=== PATIENT | female | born 1955 | race Two or more races ===

== ENCOUNTER → 2022-02-04 08:00 | Outpatient (CLI) | payer OTHER ==
[~2022-02-04] VITALS: Ht 152.4 cm; Wt 59.0 kg
[~2022-02-04 08:00] MED LIST: BUMETANIDE1 MG PO; CAMBIA50 MG PO; COZAAR50 MG PO; DECADRON0.5 MG PO; SYNTHROID50 MCG PO; VITAMIN C500 M6 PO
== END | disposition home or self-care (01) ==
LOC: LAB 08:00 → SURH 03-03 09:30 → EDSTATUS 03-03 09:30
PROVIDERS: ATTEND Surgery
DX: K43.2 Incisional hernia without obstruction or gangrene (principal); I10 Essential (primary) hypertension

== ENCOUNTER 2022-09-01 13:25 | Inpatient (IN) | payer OTHER ==
[~2022-09-01] VITALS: Ht 152.4 cm; Wt 60.3 kg
--- NOTE | 2022-09-01 13:52 | NUR ---
PACIENTE ALERTA Y ORIENTADA REFIERE SENTIR DOLOR ABDOMINAL DESDE EL VIERNES EN LA NOCHE. SE MIDEN S/V SE UBICA EN AREA DE OBSERVACION
--- NOTE | 2022-09-01 15:23 | NUR ---
SE ORIENTA PTE SOBRE TX MEDICO EL CUAL REFIERE ENTENDER.SE LE EXTRAEN MUESTRAS BAJO MEDIDAS ASEPTICAS,SE CANALIZA Y SE ENTREGA CONTRASTE PO,SE ORIENTA SOBRE EL MISMO Y SE NOTIFICA.
== END 2022-09-09 22:16 | disposition home or self-care (01) | DRG 391 ==
LOC: ER 13:25 → ICU-2 22:58 → ICU 09-04 01:49 → MEDI 09-06 17:54
PROVIDERS: ADMIT Specialist; ATTEND Specialist
PROC: BW21YZZ Computerized Tomography (CT Scan) of Abdomen and Pelvis using Other Contrast (ICD-10-PCS; principal; 2022-09-01)
PROC: 02HV33Z Insertion of Infusion Device into Superior Vena Cava, Percutaneous Approach (ICD-10-PCS; 2022-09-03)
PROC: B24BZZZ Ultrasonography of Heart with Aorta (ICD-10-PCS; 2022-09-04)
DX: K57.00 Diverticulitis of small intestine with perforation and abscess without bleeding (principal); R65.21 Severe sepsis with septic shock; N39.0 Urinary tract infection, site not specified; E03.9 Hypothyroidism, unspecified; I10 Essential (primary) hypertension; Z20.822 Contact with and (suspected) exposure to COVID-19